=== PATIENT | male | born 1975 | race African-American/Black ===

== ENCOUNTER 2018-06-30 03:00 | Emergency (ER) | payer SELFPAY ==
[~2018-06-30] VITALS: Ht 195.6 cm; Wt 79.0 kg
[2018-06-30 04:39] VITALS: BP 124/72
== END 2018-06-30 04:40 | disposition home or self-care (01) ==
LOC: ER 03:00
DX: H66.91 Otitis media, unspecified, right ear (principal); R03.0 Elevated blood-pressure reading, without diagnosis of hypertension; F17.200 Nicotine dependence, unspecified, uncomplicated
CPT/HCPCS: 99283